=== PATIENT | male | born 1965 | race Asian ===

== ENCOUNTER 2019-10-25 21:04 | Emergency (ER) | payer OTHER ==
[~2019-10-25] VITALS: Ht 182.9 cm; Wt 82.2 kg
[2019-10-25 21:13] VITALS: BP 137/81
[2019-10-26] MEDS ORDERED: BISA10SU60 RC (01:00)
[2019-10-26] MEDS ORDERED: bisacodyl 10mg suppository rectal RC STA (01:04)
== END 2019-10-26 01:12 | disposition home or self-care (01) ==
LOC: ER 21:05
DX: K59.00 Constipation, unspecified (principal); E86.0 Dehydration; F17.200 Nicotine dependence, unspecified, uncomplicated; Z72.89 Other problems related to lifestyle; Z79.899 Other long term (current) drug therapy
CPT/HCPCS: 99284